=== PATIENT | female | born 1970 | race African-American/Black ===

== ENCOUNTER 2016-10-05 08:54 | Emergency (ER) ==
[2016-10-05 09:01] VITALS: BP 129/78; TEMP 98
[2016-10-05 10:08] LABS: EOSINOPHILS # (AUTO) 0.1 K/ul (0.0-0.7); EOSINOPHILS % (AUTO) 2.2 % (0.0-7.0); IMMATURE GRANULOCYTE % (AUTO) 0.2 % (0.0-5.0); LYMPHOCYTES # (AUTO) 1.4 K/uL (0.60-3.4); MEAN CORPUSCULAR HEMOGLOBIN 22.7 pg (27.0-31.0); MEAN CORPUSCULAR VOLUME 75.6 fl (81.0-99.0); MONOCYTES # (AUTO) 0.5 K/uL (0.4-2.0); MONOCYTES % (AUTO) 12.5 (0-10); NEUTROPHILS # (AUTO) 2.1 K/ul (2.0-6.9); NEUTROPHILS % (AUTO) 50.1; PLATELET COUNT 352 10^3/uL (140-440); RED BLOOD COUNT 3.97 10^6/ul (4.20-5.40); WHITE BLOOD COUNT 4.09 K/ul (4.6-10.2)
--- NOTE | 2016-10-05 10:23 | CT ---
EXAM: CT head without contrast. HISTORY: Dizziness. COMPARISON: 08/07/2015. TECHNIQUE: Multiple axial images of the brain were obtained from the skull base through the vertex without intravenous contrast. FINDINGS: There is no intracranial hemorrhage or extraaxial collection. The conteh-white differentia tion is maintained without evidence for acute large vascular territory infarction. The cortical sul ci and basal cisterns are well visualized. There is no hydrocephalus, mass effect, or midline shift . The paranasal sinuses and mastoid air cells are clear. The calvarium is intact. Since the prior study, there has been no significant interval change. IMPRESSION: No acute intracranial abnormality.
[2016-10-05 10:43] LABS: ALANINE AMINOTRANSFERASE 12 U/L (12-78); ALBUMIN 3.8 g/dL (3.4-5.0); ALBUMIN/GLOBULIN RATIO 0.97; ALKALINE PHOSPHATASE 67 U/L (42-98); ANION GAP 11.1; ASPARTATE AMINO TRANSFERASE 16 U/L (15-37); BILIRUBIN,TOTAL 0.47 mg/dL (0.00-1.20); BLOOD UREA NITROGEN 10 mg/dL (7-18); BUN/CREATININE RATIO 9.52; CALCIUM 9.2 mg/dL (8.2-10.2); CARBON DIOXIDE 23 mmol/L (21-32); CHLORIDE 110 mmol/L (98-107); CREATINE KINASE 172 U/L; CREATININE 1.05 mg/dL (0.60-1.30); GLUCOSE 85 mg/dL (70-110); POTASSIUM 4.1 mmol/L (3.5-5.10); SODIUM 140 mmol/L (136-145); TOTAL PROTEIN 7.7 g/dL (6.4-8.2)
[2016-10-05 11:21] LABS: CREATINE KINASE MB 0.7 ng/ml (0.0-3.6)
--- NOTE | 2016-10-05 11:36 | ED.PDOC ---
General ED Provider: Dr. MANN NARANJO Chief Complaint: Dizziness Stated Complaint: dizziness Time Seen by Physician: 09:00 Mode of Arrival: Walk-In Information Source: Patient Exam Limitations: No limitations Nursing and Triage Documentation Reviewed and Agree: Yes Neurological Complaint Exam - Weakness Complaint/Exam Onset: Gradual Duration: weeks history of anemia chronic weakness Symptoms Are: Still present Timing: Constant Episodes Lasting: Weeks Initial Severity: Mild Current Severity: Mild Character: Reports: Lightheaded, Weak Aggravating: Reports: None Associated Signs and Symptoms: Denies: Nausea, Vomiting, Diaphoresis, Tinnitus, Chest pain, Short of air, Palpitations, Unsteady gait, GI blood loss, Visual changes, Decreased oral intake, Change in medication, Change in diet, OTC meds, Loss of balance Related History: Similar episode Cardiac Risk Factors: Reports: None (CVA 1996) CVA Risk Factors: Reports: None Related Surgical History: Reports: None JVD Present: No Carotid Bruit Present: No Glascow Coma Scale (see protocol): 15 Nystagmus Present: No Gag Reflex Present: Yes Meningeal Signs Positive: No Focal Weakness: Present: None Focal Sensory Loss: Present: None Gait: Normal Romberg Test Positive: No Babinski Sign: Negative Right, Negative Left Differential Diagnoses: GI Bleed (COLON CA , IRON DIFF , ) Quality Indicators for Cardiac Chest Pain: EKG in 10min. Quality Indicators for AMI: EKG in 10min. Quality Indicator For Non-Traumatic Chest Pain/Syncope: EKG Performed Review of Systems - Review Of Systems Constitutional: Reports: Weakness Eyes: Reports: No symptoms Ears, Nose, Mouth, Throat: Reports: No symptoms Respiratory: Reports: No symptoms Cardiac: Reports: No symptoms GI: Reports: No symptoms : Reports: No symptoms Musculoskeletal: Reports: No symptoms Skin: Reports: No symptoms Neurological: Reports: No symptoms Endocrine: Reports: No symptoms Hematologic/Lymphatic: Reports: No symptoms All Other Systems: Reviewed and Negative Past Medical History - Past Medical History Previously Healthy: Yes Endocrine: Reports: None Cardiovascular: Reports: None Respiratory: Reports: None Hematological: Reports: Anemia Gastrointestinal: Reports: None Genitourinary: Reports: None Neuro/Psych: Reports: CVA Musculoskeletal: Reports: None Cancer: Reports: None Last Menstrual Period: yesterday - Surgical History General Surgical History: Reports: Unknown - Family History Family History: Reports: Unknown - Social History Smoking Status: Never smoker Hx Substance Use: No Alcohol Screening: None Physical Exam - Physical Exam Appearance: Well-appearing, No pain distress, Well-nourished Eyes: NOLAN, EOMI, Conjunctiva clear ENT: Ears normal, Nose normal, Oropharynx normal Respiratory: Airway patent, Breath sounds clear, Breath sounds equal, Respirations nonlabored Cardiovascular: RRR, Pulses normal, No rub, No murmur GI/: Soft, Nontender, No masses, Bowel sounds normal, No Organomegaly Musculoskeletal: Normal strength, ROM intact, No edema, No calf tenderness Skin: Warm, Dry, Normal color Neurological: Sensation intact, Motor intact, Reflexes intact, Cranial nerves intact, Alert, Oriented Psychiatric: Affect appropriate, Mood appropriate Critical Care Note - Critical Care Note Total Time (mins): 0 Course - Course Hematology/Chemistry: 10/05/16 10:07 10/05/16 10:07 Orders, Labs, Meds: Lab Review 10/05/16 10:07 WBC 4.09 L RBC 3.97 L Hgb 9.0 L Hct 30.0 L MCV 75.6 L MCH 22.7 L MCHC 30.0 L RDW Coeff of Lauren 18.9 H Plt Count 352 Immature Gran % (Auto) 0.2 Neut % (Auto) 50.1 Lymph % (Auto) 34.0 Cowley % (Auto) 12.5 H Eos % (Auto) 2.2 Baso % (Auto) 1.0 Immature Gran # (Auto) 0.0 Neut # 2.1 Lymph # 1.4 Cowley # 0.5 Eos # 0.1 Baso # 0.0 Sodium 140 Potassium 4.1 Chloride 110 H Carbon Dioxide 23 Anion Gap 11.1 BUN 10 Creatinine 1.05 Estimated GFR (MDRD) 68.00 BUN/Creatinine Ratio 9.52 Glucose 85 Calcium 9.2 Total Bilirubin 0.47 AST 16 ALT 12 Alkaline Phosphatase 67 Total Creatine Kinase 172 CK-MB (CK-2) 0.7 CK-MB (CK-2) % 0.73090 Troponin I < 0.0100 Total Protein 7.7 Albumin 3.8 Globulin 3.9 Albumin/Globulin Ratio 0.97 Orders Category Date Time Status EKG-(ED ONLY) Stat CARDIO 10/05/16 09:51 Completed CBC W/ AUTO DIFF Stat LAB 10/05/16 10:07 Completed COMPREHENSIVE METABOLIC PANEL Stat LAB 10/05/16 10:07 Completed CREATINE KINASE Stat LAB 10/05/16 10:07 Completed TROPONIN I Stat LAB 10/05/16 10:[address] HEAD W/O CONTRAST Stat RADS 10/05/16 09:51 Completed Vital Signs: Temp Pulse Resp BP Pulse Ox 10/05/16 08:55 98.0 F 68 20 129/78 98 Departure - Departure Time of Disposition: 11:36 (DISCUSSED WITH PT COLONSCOPY) Disposition: HOME SELF-CARE Discharge Problem: Dizziness Anemia Qualifiers: Anemia type: unspecified type Qualifier Code: (D64.9) Anemia, unspecified Instructions: Anemia (ED) Condition: Good Pt referred to PMD for follow-up: No Allergies/Adverse Reactions: Allergies codeine Adverse Reaction (Verified 10/05/16 09:01) Hives Home Medications: Ambulatory Orders 1 [No Reported Medications] 10/05/16
[2016-10-05 12:14] LABS: FERRITIN 10.73 ng/mL (4.63-204.00)
== END 2016-10-05 11:50 | disposition home or self-care (01) ==
LOC: ED 08:54
DX: R42 Dizziness and giddiness (principal); D64.9 Anemia, unspecified; R00.1 Bradycardia, unspecified; Z86.73 Personal history of transient ischemic attack (TIA), and cerebral infarction without residual deficits
CPT/HCPCS: 36415; 80053; 82550; 82553; 82728; 83540; 83550; 84484; 85025; 93005; 93010; 99283

== ENCOUNTER 2017-04-08 00:24 | Emergency (ER) ==
[2017-04-08 00:33] VITALS: BP 135/87; TEMP 99.4
--- NOTE | 2017-04-08 00:47 | ED.PDOC ---
General ED Provider: Dr. LUH MEAD-ER Chief Complaint: Shortness of Air Stated Complaint: i have a cough--im coughing up green sputum--marcos had bronchitis before and this is how it feels--denies any fever or hemoptysis Time Seen by Physician: 00:30 Mode of Arrival: Walk-In Information Source: Patient Exam Limitations: No limitations Nursing and Triage Documentation Reviewed and Agree: Yes Respiratory Complaint Exam - Respiratory Complaint/Exam Onset/Duration: 2 days Symptoms Are: Still present Timing: Constant Initial Severity: Severe Current Severity: Moderate Location: Chest Character: Reports: Productive cough Aggravating: Reports: URI Alleviating: Reports: None, Spontaneous resolution Associated Signs and Symptoms: Denies: Rapid breathing, Dyspnea, Fever, Chills, Chest pain, Pleuritic chest pain, Wheezing, Hemoptysis, Dizziness, Calf pain, Calf swelling, Edema, URI, Nasal congestion, Hoarseness, Sinus discomfort, Vomiting, Sore throat, Weight loss, Decreased oral intake, Increased thirst, Increased appetite, Increased urination History of Healthcare-Acquired Pneumonia: No Status Asthmaticus Risk Factors: Reports: None Home Oxygen Use: No Recent Stress Test: No Recent Echo/LV Function: No Current Antibiotic Use: No Current Asthma Medication Use: No Respiratory Distress: None Inadequate Respiratory Effort: No Dysphagia Present: No Stridor Present: No JVD Present: No Accessory Muscle Use: No Retractions: Not Present Diminished Breath Sounds: No Sinus Tenderness: None Grunting Respirations: No Kussmaul Respirations: No Differential Diagnoses: Bronchitis Review of Systems - Review Of Systems Constitutional: Reports: No symptoms Eyes: Reports: No symptoms Ears, Nose, Mouth, Throat: Reports: No symptoms Respiratory: Reports: Cough Cardiac: Reports: No symptoms GI: Reports: No symptoms : Reports: No symptoms Musculoskeletal: Reports: No symptoms Skin: Reports: No symptoms Neurological: Reports: No symptoms Endocrine: Reports: No symptoms Hematologic/Lymphatic: Reports: No symptoms All Other Systems: Reviewed and Negative Past Medical History - Past Medical History Previously Healthy: Yes Endocrine: Reports: None Cardiovascular: Reports: None Respiratory: Reports: None Hematological: Reports: Anemia Gastrointestinal: Reports: None Genitourinary: Reports: None Neuro/Psych: Reports: CVA Musculoskeletal: Reports: None Cancer: Reports: None Last Menstrual Period: 03/21/17 - Surgical History General Surgical History: Reports: Unknown - Family History Family History: Reports: Unknown - Social History Smoking Status: Never smoker Hx Substance Use: No Alcohol Screening: None - Immunizations Tetanus Shot up to Date: No (unsure) Physical Exam - Physical Exam Appearance: Well-appearing, No pain distress, Well-nourished Eyes: NOLAN, EOMI, Conjunctiva clear ENT: Ears normal, Nose normal, Oropharynx normal Neck: Supple Respiratory: Airway patent, Breath sounds clear, Breath sounds equal, Respirations nonlabored Cardiovascular: RRR GI/: Soft Musculoskeletal: Normal strength, ROM intact, No edema, No calf tenderness Skin: Warm, Dry, Normal color Neurological: Sensation intact, Motor intact, Reflexes intact, Cranial nerves intact, Alert, Oriented Psychiatric: Affect appropriate Critical Care Note - Critical Care Note Total Time (mins): 0 Course - Course Vital Signs: Temp Pulse Resp BP Pulse Ox 04/08/17 00:26 99.4 F 66 20 135/87 98 Departure - Departure Time of Disposition: 00:49 Disposition: HOME SELF-CARE Discharge Problem: Bronchitis Instructions: Acute Bronchitis (ED) Condition: Good Pt referred to PMD for follow-up: Yes Additional Instructions: michelle borrego dose pack--use mucinex 600mg bid --see pmd if not better in 48hrs Allergies/Adverse Reactions: Allergies codeine Adverse Reaction (Verified 04/08/17 00:25) Hives Home Medications: Ambulatory Orders 1 [No Reported Medications] 10/05/16 Disposition Discussed With: Patient
== END 2017-04-08 00:55 | disposition home or self-care (01) ==
LOC: ED 00:24
DX: J20.9 Acute bronchitis, unspecified (principal)
CPT/HCPCS: 99282

== ENCOUNTER 2017-08-02 16:31 | Outpatient (CLI) | END 2017-08-02 16:32 | disposition home or self-care (01) | LOC: LAB 16:31 | PROVIDERS: ATTEND General Practice | DX: N92.0 Excessive and frequent menstruation with regular cycle (principal); Z79.899 Other long term (current) drug therapy | CPT/HCPCS: 36415; 80053; 81001; 85008; 85025 ==

== ENCOUNTER 2019-09-09 13:24 | Observation (INO) ==
[2019-09-09] MEDS ORDERED: ASPIRIN CHEWABLE PO STA (13:43)
--- NOTE | 2019-09-09 13:47 | ED.PDOC ---
General ED Provider: Dr. AYANNA MAYORGA MD Chief Complaint: Chest Pain Stated Complaint: mild to mod off and on anterior chest pain tight since 7am with rad to back, no injury Time Seen by Physician: 13:45 Mode of Arrival: Walk-In Information Source: Patient Nursing and Triage Documentation Reviewed and Agree: Yes Does patient meet sepsis criteria?: No System Inflammatory Response Syndrome: Not Applicable Sepsis Protocol: For patient's 13 years and over: Temp is 96.8 and below OR 101 and greater Pulse >90 BPM Resp >20/minute Acutely Altered Mental Status Are patient's symptoms suggestive of a new infection, such as: -Pneumonia -Skin, Soft Tissue -Endocarditis -UTI -Bone, Joint Infection -Implantable Device -Acute Abdominal Infection -Wound Infection -Meningitis -Blood Stream Catheter Infection -Unknown Cardiovascular Complaint Exam Chest Pain Complaint/Exam Onset: Sudden Duration: today Symptoms Are: Resolved Timing: Intermittent Initial Severity: Moderate Current Severity: None Location: Reports Midsternal Pain Radiates: Reports Back Review of Systems Review Of Systems Constitutional: Denies Fever Eyes: Denies Vision change Ears, Nose, Mouth, Throat: Denies Throat pain Respiratory: Denies Short of air Cardiac: Reports Chest pain GI: Denies Abdominal pain Musculoskeletal: Denies Neck pain Skin: Denies Rash Neurological: Denies Cognitive dysfunction All Other Systems: Other [facility] Medical History Anemia Menorrhagia Family History (Updated 09/09/19 @ 16:27 by ALONZO HCAIDEZ RN) Mother Diabetes Hypertension Hypercholesteremia FATHER No problems noted. SISTER Diabetes Hypertension BROTHER No problems noted. BROTHER Diabetes Social History Smoking and tobacco status: Never smoker Passive smoking exposure: No Second hand smoke exposure: No Alcohol intake: never Substance use type: does not use Emily/gnosticist: NONE Special emily needs: No Agree to transfusion: Yes Adopted: No Caregiver/support person: Yes Foster care: No Household members: children Housing: apartment Marital status: S SINGLE Daycare: no daycare Number of children: 4 Number of grandchildren: 13 Highest education level completed: high school graduate Financial difficulty paying for basics: not very hard service: No Current occupational status: employed 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 [employer] Current occupational exposures/hazards: No Pets and animals: No Leisure activites: other History of recent travel: No Sexually active: No Do you think of yourself as: straight/heterosexual Current gender identity: female Seatbelt use: always Helmet use: No Drives intoxicated or rides with intoxicated clamp truck driver: No Water heater temperature set < 120 degrees: Yes Working smoke detector in home: Yes Fire extinguisher in home: Yes Carbon monoxide detector in home: Yes Firearms in home: No Female Reproductive History Menstrual Hx Hysterectomy: No Hx Tubal Ligation: Yes (2000) Physical Exam Physical Exam Appearance: Reports Well-appearing Ill-appearing: None Pain Distress: None Eyes: Reports Conjunctiva clear Neck: Supple Respiratory: Reports Airway patent, Breath sounds clear and Breath sounds equal Cardiovascular: Reports RRR GI/: Reports Soft and Nontender (pt refused stool for hemoccult, as they had been negative in the past, hx hgb 5.7 and transfusion in Aug of this year) Musculoskeletal: Reports ROM intact Skin: Reports Warm and Dry Neurological: Reports Sensation intact Psychiatric: Reports Affect appropriate Interpretation Radiology Interpretation Radiology Interpretation By: Radiologist Radiology Results: No acute changes Exam Interpreted: CXR EKG Interpretation Time of EKG #1: 14:54 Rate: Joesph Rhythm: Sinus Interpretation: no stemi Re-Evaluation Re-Evaluation Time of Re-Evaluation: 14:55 Status: Improved Vital Signs Stable: Yes Appearance: NAD Lungs: Clear Skin: Warm and Dry Neuro: Alert and Oriented X3 CV: RRR Additional Comments: admit for anemia and chest pain d/w Dr Emanuel Critical Care Note Critical Care Note Total Time (mins): 0 Course Course Hematology/Chemistry: 09/09/19 13:53 09/09/19 13:53 Orders, Labs, Meds: Lab Review 09/09/19 09/09/19 09/09/19 13:53 13:53 13:53 WBC 6.70 RBC 3.92 L Hgb 7.3 L Hct 26.2 L MCV 66.8 L MCH 18.6 L MCHC 27.9 L RDW Coeff of Lauren 29.0 H Plt Count 133 L Neutrophils % (Manual) 65.0 Band Neutrophils % 3.0 Lymphocytes % (Manual) 18.0 Monocytes % (Manual) 9.0 Metamyelocytes % 4.0 H Nucleated RBCs 1.0 Hypochromasia 2+ Anisocytosis 2+ Microcytosis 1+ PT INR Sodium 138.4 Potassium 3.85 Chloride 105.6 Carbon Dioxide 25.3 Anion Gap 11.35 BUN 13.2 Creatinine 0.92 Estimated GFR (MDRD) 79.00 BUN/Creatinine Ratio 14.34 Glucose 95.2 Calcium 8.53 Total Bilirubin 2.09 H AST 77.5 H ALT 12.5 Alkaline Phosphatase 60.7 Troponin I 0.017 Total Protein 7.85 Albumin 4.20 Globulin 3.65 Albumin/Globulin Ratio 1.15 Lipase 62.3 Serum , Qual Negative 09/09/19 13:53 WBC RBC Hgb Hct MCV MCH MCHC RDW Coeff of Lauren Plt Count Neutrophils % (Manual) Band Neutrophils % Lymphocytes % (Manual) Monocytes % (Manual) Metamyelocytes % Nucleated RBCs Hypochromasia Anisocytosis Microcytosis PT 10.0 INR 1.02 Sodium Potassium Chloride Carbon Dioxide Anion Gap BUN Creatinine Estimated GFR (MDRD) BUN/Creatinine Ratio Glucose Calcium Total Bilirubin AST ALT Alkaline Phosphatase Troponin I Total Protein Albumin Globulin Albumin/Globulin Ratio Lipase Serum , Qual Orders Category Date Time Status EKG-(ED ONLY) Stat CARDIO 09/09/19 13:43 Completed CBC W/ AUTO DIFF Stat LAB 09/09/19 13:53 Completed COMPREHENSIVE METABOLIC PANEL Stat LAB 09/09/19 13:53 Completed LIPASE Stat LAB 09/09/19 13:53 Completed MANUAL DIFFERENTIAL Stat LAB 09/09/19 13:53 Completed OCCULT BLOOD, STOOL Stat LAB 09/09/19 14:15 Uncollected PT WITH INR Stat LAB 09/09/19 13:53 Completed SERUM Stat LAB 09/09/19 13:53 Completed TROPONIN I Stat LAB 09/09/19 13:53 Completed Aspirin [Aspirin Chewable] MEDS 09/09/19 13:43 Discontinued 324 mg PO ONCE STA CHEST, 1V AP ONLY Stat RADS 09/09/19 13:43 Completed Medications Generic Name Dose Route Start Last Admin Trade Name Freq PRN Reason Stop Dose Admin Acetaminophen 650 mg 09/09/19 14:57 Tylenol PO Q4H PRN Mild Pain Sodium Chloride 1,000 mls @ 75 mls/hr 09/09/19 15:00 09/09/19 15:36 Sodium Chloride IV 75 mls/hr .[id number] MARIO Administration Omeprazole 40 mg 09/09/19 15:00 09/09/19 15:35 Prilosec PO 40 mg QDAC MARIO Administration Discontinued Medications Generic Name Dose Route Start Last Admin Trade Name Nirali PRN Reason Stop Dose Admin Aspirin 324 mg 09/09/19 13:43 09/09/19 13:54 Aspirin Chewable PO 09/09/19 13:44 324 mg ONCE STA Administration Vital Signs: Temp Pulse Resp BP Pulse Ox 09/09/19 13:25 98.9 F 75 18 130/78 98 HARRISON Risk Score HARRISON Risk Score: Risk Score Odds of by 30D 0 0.1 (0.1-0.2) 1 0.3 (0.2-0.3) 2 0.4 (0.3-0.5) 3 0.7 (0.6-0.9) 4 1.2 (1.0-1.5) 5 2.2 (1.9-2.6) 6 3.0 (2.5-3.6) 7 4.8 (3.8-6.1) Discharge Plan Discharge Patient Disposition: PLACED OBSERVATION Discharge Problem: Chest pain Qualifiers: Chest pain type: precordial pain Qualified Code(s): R07.2 - Precordial pain Anemia Qualifiers: Anemia type: unspecified type Qualified Code(s): D64.9 - Anemia, unspecified ED Provider: AYANNA MAYORGA Condition: Stable Discharge Date/Time: 09/09/19 15:12
[2019-09-09 13:57] LABS: HEMATOCRIT 26.2 % (37.0-47.0)
--- NOTE | 2019-09-09 14:42 | DI ---
EXAM: Single view of the chest. History: Chest pain. Comparison: Chest CT 07/04/2016 Findings: Heart size is borderline enlarged. No focal consolidation. No appreciable pleural fluid and no pneumothorax. No acute osseous abnormalities. Impression: Borderline cardiomegaly without acute disease in the chest
[2019-09-09] MEDS ORDERED: TYLENOL PO PRN (14:57)
[2019-09-09] MEDS ORDERED: SODIUM CHLORIDE 1,000 ML IV SCH (15:00)
[2019-09-09] MEDS: PRILOSEC PO SCH (15:35)
[2019-09-09 15:56] VITALS: BMI 27.4
--- NOTE | 2019-09-09 15:56 | PCM ---
Chief Complaint Chief Complaint: 49 yo AAF presented to ED today 09/09/19 with c/o substernal chest pain/epigastric chest pain. History of Present Illness History of Present Illness: 49 yo AAF presented to ED today 09/09/19 at [address] Manuel. Patient reported chest pain mild to moderate off and on anterior chest pain/tightness since 7a m with radiation into the back. No known injury, no trauma, no falls. She arrived via ambulation, provided own in formation. Vitals 98.9, pulse 75, rr 18, bp 130/78 and pulse ox 98. Pain noted to be sudden onset, starting today, now intermittently present moderate severity, midsternal to back pain. No fevver, no vision changes, no throat pain, no SOA, no COE, no abd pain, no mental status changes reported to ED. 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 Manuel. Never smoker. No ETOH, no drug use. Phys exam in ED well-appearing, lungs clear, RRR cv exam. Refused stool for hemoccult. Recent hgb 5.7 transfusion 2 units within past 2 weeks through IT INFRASTRUCTURE MANAGER Marko request at [facility]. CXR completed and negative. EKG completed and read as Bradycardia else no acute process in ED (copy of EKG not available to me at this time). Labs in ED showed CBC WBC 6.70, hgb 7.3, hct 26.2, plt 133. CMP sodium 138.4, K+ 3.85, Cl 105.6, bun 13.2, cr 0.92, glycose 95.2, calcium 8.53, AST 77.5. Bili 2.09. Troponin I negative. Lipase negative at 62.3. PT 10, INR 1.02 . Reviewed report "Borderline cardiomegaly without acute disease in the chest." Patient was given 324 ASA in ED, no change. She has no history of DM, no obvious/known CAD. HARRISON score of 1 point suggests she has a 5% risk at 14 days of: all-cause mortality, new or recurrent WI, or severe recurrent ischemia requiring urgent revascularization. Odds of 0.3. Meds listed as augmentin, b12 (for low b12), flonase, naproxen. I will stop naproxen with concern for bleed and low platelet. Less cardiac SE from naproxen than other nsaids. Will cover her with morphine during hospital stay. Note reviewed from 09/07/19 TOÑITO Zhu 4 day f/u on PRBC infusion last week. Reported improved feelings. No C/o noted. LMP 09/04/19. Known iron deficiency, known anemia, b12 low, iron suggests low, s/p PRBC 2 units. Provider/patietn have discussed PO iron. She has not done well with FESo4 in past. Considered other source of iron. She has had blood tx hsitorically, up to 4 units to get it above 7. Sinus drainage at last OV on augmentin for that process. Rx for flonase, not taking yet. Note from 09/03/19 also reviewed. Cough, Tachycardia, febrile temp 100.9. Low iron, sx started 09/01/19. LMP reported as 09/03- (I talked with her personally and her LMP was 08/21-09/04). Patient d/w IT INFRASTRUCTURE MANAGER Jerman that she had 1 week tachy, dizzy, ODONNELL generalized, cough non prod. Hx of severe anemia requiring tx. Last tx 1 year ago. No sinus tenderness, hot/chills, no cheset pain, no flu shot this season. Iron pills make her sick at stomach, was taking flinstones vitamins, but not helping. Wants to see web marketing analyst due to heavy cycles. Heavy clots, 2 week cycles. Longe term problem. She wants to d/w OIL PUMPER. Mother recently w/ pneumonia at 70 yr old according to note. Hgb was 4.9 at that visit. Set up for 2 units PRBC. Transfused. Patient seen room 122: Noted stroke 1986 after Contraception. She had left facial weakness, resolved, no issues. 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 The patient noted that she had chest pain and lower back pain and this presented to epigastric region and stayed a the sternum, felt heart was fluttering. She laid there and it went away and then it came back again. No N/V. Diarrhea this am. Likely antibiotic related diarrhea. Non bloody diarrhea. She has appt with conduit bender at 10 am tomorrow at . She wants treadmill stress, declines chemical stress. She and I discussed iron and b12. We will get her injection of b12 as outpatient. She noted her SOA, COE, her cough and symptoms improved post transfusion. She feels 7 is doing very well for her. not currently sexually active. After further discussion her LMP was 08/21- 09/04. No concern. Discussed to discuss with senior net programmer hysterectomy vs ablation. No C/O now, no CHest pain. Vital Signs Temp 98.9 F 09/09/19 15:56 Pulse 75 09/09/19 15:56 Resp 18 09/09/19 15:56 BP 130/78 09/09/19 15:56 Pulse Ox 98 09/09/19 15:56 Intake & Output 09/08/19 09/09/19 09/09/19 23:59 11:59 23:59 Weight 165 lb Other: Voiding Method Toilet Height 5 ft 5 in Body Mass Index (BMI) 27.4 Constitutional: Appearance-No acute distress, Consistent with stated age. Orientation- Oriented x 3, alertGait-Normal pace, normal arm movement. Build and Nutrition-[overweight] General- Patient is pleasant and cooperative with the interview and exam. Integumentary: General-No rashes, ulcers or lesions. Palpation- Normal skin moisture/turgor. Skin is warm to touch, appropriate. Capillary refill is normal bilateral Upper and lower extremity. Head/Neck: Head- normocephalic and atraumatic. Neck- without visible/palpable lumps or pulsations. Palpation- No bony tenderness about head/neck along frontal, occipital, temporal, parietal, mastoid, jawline, zygoma, orbit or any other location. NO temporal artery tenderness. No TMJ tenderness. Neck Supple. Thyroid-No thyromegaly, no nodules Eye: Bilaterally PERRLA, EOMI. No discharge. Upper and lower eyelids are normal. Sclera/conjunctiva normal without discharge. Cornea is normal and clear. Lens is normal. Eyeball appears normal. No ciliary flushing, no conjunctival injection. ENMT: Pinna- normal without tenderness or erythema. External auditory canal Left- normal without erythema or discharge, no excessive cerumen. External auditory canal Right-normal without erythema or discharge, no excessive cerumen. TM left- unable to visualize due to Cerumen impaction. TM Right- Leung/pearly, normal light reflex and anatomy Hearing Assessment-normal to conversational speech. Nose and sinus- No sinus tenderness along frontal/maxillary region. E xternal appearance normal and midline. Nares- bilateral quiet airflow, no discharge. Nasal mucosa- No bleeding noted and no ulcerations observed. [place], moist. Turbinates non boggy. Lips- normal color, moist without cracks/lesions Oral Cavity/Palate- hard/soft palate intact without lesions, oral mucosa pink and moist. Dentition assessed [and poor, missing teeth] and discussed appropriate oral care. Tongue normal midline. Oropharynx- no pharyngeal erythema, Uvula midline. No post nasal drip. No exudate. Salivary glands- Non tender to palpation CHEST/LUNG: Inspection- symmetric chest wall no pectus deformity. Normal effort, no distress, no use of accessory muscles. Palpation- nontender sternum, ribline. No abnormal pulsations. Auscultation- Breath sounds normal throughout all lung rivero. Normal tracheal sounds, Normal bronchial sounds overlying sternum, Bronchovessicular sounds normal between scapulae posteriorly, Normal vessicular breath sounds heard throughout periphery. Lungs are clear today. Adventitious sounds- No wheezes, rales, rhonchi. CARDIOVASCULAR: Carotid artery- normal, no bruits or abnormal pulsations. Jugular vein- no pulsations. Palpation/Percussion- Normal PMI, no palpable thrill Auscultation- Regular rate and rhythm. No murmur noted in sitting, supine positions. Extremities- no digital clubbing, cyanosis, edema, increased warmth. ABDOMEN: Inspection- normal and no visible pulsations. Normal contour. Auscultation- Bowel sounds normal, no abdominal bruits. Palpation/Percussion- soft, non-tender, no rebound tenderness, no rigidity (guarding), no jar tenderness, no masses. Liver-no hepatomegaly, Spleen no splenomegaly, Hernias- none. Rectal not examined. Peripheral Vascular: Upper extremity Left- Normal temperature with pink nailbeds and no ulcerations. Upper extremity Right- Normal temperature with pink nailbeds and no ulcerations. Lower extremity- Normal temperature with pink nailbeds and no ulcerations. DP pulses 2+ bilaterally. Pedal hair intact. Normal capillary refill. Edema- No edema. IV left forearm. Musculoskeletal: Generalized-No generalized swelling or edema of extremities, no digital clubbing or cyanosis, neurovascularly intact all four extremities. Upper extremity- Symmetrical posture. No visible deformity. Normal sensation along medial and lateral upper extremity proximally and distally. NO tenderness overlying shoulder, lateral/medial epicondyle. Sketch Maker 5/5 and strength 5/5 bilateral UE. Elbow palpated, no tenderness overlying olecranon. Normal supination, pronation to active/passive ROM and to resisted rotation. Bicep insertion/tricep insertion appear normal without obvious pathology. Rotator cuff evaluated and intact. Normal wrist ROM bilaterally. Normal hand movement, intrinsic muscles of hands normal. No tenderness to palpation of hands/wrists/elbows. Lower extremity- Hip: Not tender to palpation, no pain, no swelling, edema or erythema of surrounding tissue, normal strength and tone. Normal appearing hip ROM bilaterally without pain. Knee: Knee ROM normal. No tenderness overlying trochanters, no tenderness about patella, quad tendon, patellar tendon. No tenderness at tibial tuberosity. Ankle: normal ROM not tender to palpation along medial/lateral malleolus. Foot: Normal movement of toes, no tenderness bilateral feet/toes. Normal foot type. Spine/Ribs- No deformities, masses or tenderness, no known fractures, normal strength, Normal ROM. Normal stability No tenderness along C/T/L spine. Normal appearing ROM about spine. Neurological: General- Moves all 4 extremities symmetrically. Symmetrical face and body posture except mild left lower lip droop/lag that is chronic. Cranial nerves- individually evaluated II-XII and intact. PERRLA, Normal EOMI, visual/special senses appear intact, Face is symmetrical and normal sensa tion/movement, normal tongue, normal strength/posture of neck musculature. Reflexes- intact with DTR 2+ patellar, Achilles, bicep, brachial, tricep. Ankle clonus normal with 2 beats. Strength- 5/5 bilateral UE and LE. Soft touch- intact bilateral UE and LE. Temperature sensation- intact bilateral UE and LE. Neuropsych: Oriented- Person, place, time. (AAOx3), Mood/affect- normal and congruent. Able to articulate well. Speech-Normal speech, normal rate, normal tone, normal use of language, volume and coherence. Thought content- normal with ability to perform basic computations and apply abstract thought/reason. Associations- intact, no SI/HI, no hallucinations, delusions, obsessions. Judgment/insight- Appropriate. Memory-Recall intact, remote and recent memory intact. Knowledge- Age appropriate fund of knowledge, concentration and attention span normal. Lymphatic: Head/Neck- normal size and non tender to palpation. Axillary- normal size and non tender to palpation. Femoral and Inguinal- normal size and non tender to palpation. Review of Systems Constitutional: Denies fever, chills, weakness, sweats, fatigue and loss of appetite Eyes: Denies blurred vision, double-vision, discharge, itching, pain, redness and photophobia Ears: Denies pain, bleeding, drainage, ringing and hearing loss Nose: Denies bleeding, congestion and discharge Throat: Denies pain, swelling and voice change Mouth: Denies bleeding, pain and swelling Respiratory: Denies cough, shortness of air, wheeze, hemoptysis and pain with breathing Cardiovascular: Reports chest pain; Denies left arm pain, diaphoresis, PND, orthopnea, edema, palpitations and syncope Gastrointestinal: Reports abdominal pain, nausea and diarrhea; Denies vomiting, melena, hematemesis, hematochezia, dysphagia and constipation Genitourinary: Denies dysuria, hematuria, frequency, incontinence, flank pain, vaginal discharge, abnormal bleeding and pelvic pain Last Menstrual Cycle: 08/21-09/04/19 Neurological: Denies headache, dizziness, seizure, numbness, weakness, speech difficulty, problems with walking, tremor and fainting Musculoskeletal: Denies pain and swelling in joints Skin: Denies rash, pruritus, lacerations, wounds and bruising Immunology: Denies hives, itching, frequent infections and difficulty healing Hematology: Reports other (anemia); Denies easy bruising, easy bleeding and swollen glands Endocrine: Denies weight changes, cold intolerance, heat intolerance, excessive thirst, excessive hunger and polyuria Psychiatric: Denies depression, anxiety, sleeplessness, hopelessness, suicidal and hallucinations Habits: Reports other; Denies tobacco use, substance use and alcohol use Allergies Allergies Allergy/AdvReac Type Severity Reaction Status Date / Time codeine AdvReac Hives Verified 09/09/19 13:34 [facility] Medical History Anemia Menorrhagia Stroke (Acute) Surgical History History of tubal ligation Family History Mother Diabetes Hypertension Hypercholesteremia FATHER No problems noted. SISTER Diabetes Hypertension BROTHER No problems noted. BROTHER Diabetes Social History Smoking and tobacco status: Never smoker Passive smoking exposure: No Second hand smoke exposure: No Alcohol intake: never Substance use type: does not use Emily/orthodoxy: NONE Special emily needs: No Agree to transfusion: Yes Adopted: No Caregiver/support person: Yes Foster care: No Household members: children Housing: apartment Marital status: S SINGLE Daycare: no daycare Number of children: 4 Number of grandchildren: 13 Highest education level completed: high school graduate Financial difficulty paying for basics: not very hard service: No Current occupational status: employed 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 [employer] Current occupational exposures/hazards: No Pets and animals: No Leisure activites: other History of recent travel: No Sexually active: No Do you think of yourself as: straight/heterosexual Current gender identity: female Seatbelt use: always Helmet use: No Drives intoxicated or rides with intoxicated stunt driver: No Water heater temperature set < 120 degrees: Yes Working smoke detector in home: Yes Fire extinguisher in home: Yes Carbon monoxide detector in home: Yes Firearms in home: No Medications Medications: Medications Generic Name Dose Route Start Last Admin Trade Name Freq PRN Reason Stop Dose Admin Acetaminophen 650 mg 09/09/19 14:57 Tylenol PO Q4H PRN Mild Pain Sodium Chloride 1,000 mls @ 75 mls/hr 09/09/19 15:00 09/09/19 15:36 Sodium Chloride IV 75 mls/hr .[id number] MARIO Administration Omeprazole 40 mg 09/09/19 15:00 09/09/19 15:35 Prilosec PO 40 mg QDAC MARIO Administration Body Composition Height: 5 ft 5 in Weight: 165 lb Body Mass Index (BMI): 27.4 Vital Signs Temperature: 98.9 F Pulse Rate: 75 Respiratory Rate: 18 Blood Pressure: 130/78 O2 Sat by Pulse Oximetry: 98 Physical Examination Appearance: Reports Well-appearing; Denies Ill-appearing, No pain distress, Well-nourished, Obese and Thin Ill-appearing: None Pain Distress: None (chest pain is resolved now. ) Eyes: Reports NOALN, EOMI and Conjunctiva clear; Denies Conjunctiva inflammed and Conjunctiva pale ENT: Reports Nose normal, Oropharynx normal and TMs Occluded (cerumen impacted left, prominent right. ); Denies Epistaxis, Erythema, Exudate and Dry mucosa Neck: Supple Respiratory: Reports Airway patent, Breath sounds clear, Breath sounds equal and Respirations nonlabored; Denies Breath sounds diminished, Crackles, Rhonchi, Wheezes and Retractions Cardiovascular: Reports RRR, Pulses normal, No rub, No murmur and Bradycardia; Denies Irregular rhythm, Tachycardia, Abnormal pulses and Murmur GI/: Reports Soft, Nontender, No masses, Bowel sounds normal and No Organomegaly; Denies Tender, Mass, Bowel sounds hypoactive, Bowel sounds hyperactive, Hepatomegaly and Splenomegaly Musculoskeletal: Reports Normal strength, ROM intact, No edema and No calf tenderness; Denies Limited ROM, Limited strength, Edema and Calf tenderness Skin: Reports Warm, Dry and Normal color; Denies Pale, Diaphoretic and Cyanotic Neurological: Reports Sensation intact, Motor intact, Reflexes intact, Cranial nerves intact, Alert and Oriented Psychiatric: Reports Affect appropriate and Mood appropriate; Denies Anxious and Depressed Lab/Tests/Diagnostic Imaging Lab/Tests/Diagnostic Imaging: Lab Review 09/09/19 09/09/19 09/09/19 13:53 13:53 13:53 WBC 6.70 RBC 3.92 L Hgb 7.3 L Hct 26.2 L MCV 66.8 L MCH 18.6 L MCHC 27.9 L RDW Coeff of Lauren 29.0 H Plt Count 133 L Neutrophils % (Manual) 65.0 Band Neutrophils % 3.0 Lymphocytes % (Manual) 18.0 Monocytes % (Manual) 9.0 Metamyelocytes % 4.0 H Nucleated RBCs 1.0 Hypochromasia 2+ Anisocytosis 2+ Microcytosis 1+ PT INR Sodium 138.4 Potassium 3.85 Chloride 105.6 Carbon Dioxide 25.3 Anion Gap 11.35 BUN 13.2 Creatinine 0.92 Estimated GFR (MDRD) 79.00 BUN/Creatinine Ratio 14.34 Glucose 95.2 Calcium 8.53 Total Bilirubin 2.09 H AST 77.5 H ALT 12.5 Alkaline Phosphatase 60.7 Troponin I 0.017 Total Protein 7.85 Albumin 4.20 Globulin 3.65 Albumin/Globulin Ratio 1.15 Lipase 62.3 Serum , Qual Negative 09/09/19 13:53 WBC RBC Hgb Hct MCV MCH MCHC RDW Coeff of Lauren Plt Count Neutrophils % (Manual) Band Neutrophils % Lymphocytes % (Manual) Monocytes % (Manual) Metamyelocytes % Nucleated RBCs Hypochromasia Anisocytosis Microcytosis PT 10.0 INR 1.02 Sodium Potassium Chloride Carbon Dioxide Anion Gap BUN Creatinine Estimated GFR (MDRD) BUN/Creatinine Ratio Glucose Calcium Total Bilirubin AST ALT Alkaline Phosphatase Troponin I Total Protein Albumin Globulin Albumin/Globulin Ratio Lipase Serum , Qual Orders Category Date Time Status ADMIT OBSERVATION [PLACE PATIENT OBSERVATION] .TO ADMISSION 09/09/19 15:02 Active MEDSURG (MONITORED BED) EKG-(ED ONLY) Stat CARDIO 09/09/19 13:43 Completed INTAKE & OUTPUT Q8HR CARE 09/09/19 14:58 Active TELEMETRY MONITORING TELE CARE 09/09/19 15:03 Active VITAL SIGNS Q8HR CARE 09/09/19 14:58 Active CARDIAC DIET DIETARY 09/09/19 Dinner Ordered REGULAR DIET DIETARY 09/09/19 Dinner Ordered CBC W/ AUTO DIFF Stat LAB 09/09/19 13:53 Completed COMPREHENSIVE METABOLIC PANEL Stat LAB 09/09/19 13:53 Completed LIPASE Stat LAB 09/09/19 13:53 Completed MANUAL DIFFERENTIAL Stat LAB 09/09/19 13:53 Completed OCCULT BLOOD, STOOL Stat LAB 09/09/19 14:15 Uncollected PT WITH INR Stat LAB 09/09/19 13:53 Completed SERUM Stat LAB 09/09/19 13:53 Completed TROPONIN I Q8H LAB 09/09/19 21:00 Ordered TROPONIN I Q8H LAB 09/10/19 05:00 Ordered TROPONIN I Stat LAB 09/09/19 13:53 Completed Acetaminophen [Tylenol] MEDS 09/09/19 14:57 Active 650 mg PO Q4H PRN Aspirin [Aspirin Chewable] MEDS 09/09/19 13:43 Discontinued 324 mg PO ONCE STA Omeprazole [Prilosec] MEDS 09/09/19 15:00 Active 40 mg PO QDAC Sodium Chloride 0.9% [Sodium Chloride] 1,000 ml MEDS 09/09/19 15:00 Active IV 75 mls/hr RESUSCITATION STATUS Routine OTHERS 09/09/19 14:57 Ordered CHEST, 1V AP ONLY Stat RADS 09/09/19 13:43 Completed Medications Generic Name Dose Route Start Last Admin Trade Name Freq PRN Reason Stop Dose Admin Acetaminophen 650 mg 09/09/19 14:57 Tylenol PO Q4H PRN Mild Pain Sodium Chloride 1,000 mls @ 75 mls/hr 09/09/19 15:00 09/09/19 15:36 Sodium Chloride IV 75 mls/hr .[id number] MARIO Administration Omeprazole 40 mg 09/09/19 15:00 09/09/19 15:35 Prilosec PO 40 mg QDAC MARIO Administration Discontinued Medications Generic Name Dose Route Start Last Admin Trade Name Freq PRN Reason Stop Dose Admin Aspirin 324 mg 09/09/19 13:43 09/09/19 13:54 Aspirin Chewable PO 09/09/19 13:44 324 mg ONCE STA Administration Assessment (1) Chest pain: Status: Acute Code(s): R07.9 - Chest pain, unspecified SNOMED Code(s): 16752882 Qualifiers: Chest pain type: precordial pain Qualified Code(s): R07.2 - Precordial pain (2) Anemia: Status: Acute Code(s): D64.9 - Anemia, unspecified SNOMED Code(s): 146604420 Qualifiers: Anemia type: unspecified type Qualified Code(s): D64.9 - Anemia, unspecified (3) Vitamin B12 deficiency: Status: Acute Code(s): E53.8 - Deficiency of other specified B group vitamins SNOMED Code(s): 730385777 (4) Iron (Fe) deficiency anemia: Status: Acute Code(s): D50.9 - Iron deficiency anemia, unspecified SNOMED Code(s): 06107500 (5) Excessive cerumen in left ear canal: Status: Acute Code(s): H61.22 - Impacted cerumen, left ear SNOMED Code(s): 983191014 (6) Menorrhagia: Status: None SNOMED Code(s): 229819504 Plan Plan: Chest pain: DDX for chest pain is vast. We discussed typical examination in history findings for chest pain and heart attack today. We discussed that multiple organ systems can be the cause for this complaint. We reviewed possible causes to include cardiac etiologies: ACS, pericarditis, pericardial effusion, respiratory issues to include bronchitis/asthma/COPD/bronchospasm, PE (No SOA, no COE, LOW LIKELIHOOD OF PE/DVT based on Wells score 0 (1.3%)), GI problems to include esophageal spasm/achalasia, Hiatal hernia, GERD, PUD, Liver disease/pancreatic disease, renal disease. Will check labs as listed. We discussed risks and benefits to getting EKG today, we reviewed aspirin and nitroglycerin. HARRISON score of 1. Requested stress. I will get stress/echo in am. She requested treatmill. She is asymptomatic now. She has had history of stroke. DIscussed GI as most likely etiology. - Admit Obs - Tele Overnight - Fluids maintenance: NS 115ml/hr - Am cbc/cmp - Treadmill Stress echo in am - Echocardiogram in am (history of embolic stroke) - Morphine 2mg IV q 4 hours pRN pain - D/C NSAIDS. - Hemoccult ordered. Sinusitis: Continue home dose of augmentin. - Augmentin 875 PO BID x 7 days. Cerumen impaction left: Monitor. Hold debrox while in hospital. DVT Prophy: With history of ?dark stools, no blood thinners for now. Up ad jyoti. If a BM is present please check for hemoccult. - GRISELDA/SCD overnight recommended. - Up ad jyoti, full activity. Anemia: B12/ iron deficient. W/u as outpatient. Transfusion completed within last few weeks. Continue to monitor. Anemia is better than it has been in a while. She is happy with progress. - CBC/CMP in am. Fluids: Maintenance fluids to be set at 115ml/hour overnight (increase from 75). Diet: Regular. NPO after midnight. Disposition: Expected length of stay 24 hours. Moderate complexity 50 minutes spent with patient today. Reviewed ED information with her, reviewed last notes from IT INFRASTRUCTURE MANAGER with her. Reviewed labs, imaging, symptoms. She has appt with senior net programmer tomorrow. Anemia chronic. Now chest pain free. Consider PPI/Carafate as next line. For now she coe snot want this. We discussed options. Will see again in am. Discussed care with nursing as well.
[2019-09-09] MEDS: FLONASE NAS SCH (18:03)
[2019-09-09] MEDS: AUGMENTIN 875-125 MG TAB PO SCH (20:23)
[2019-09-10] MEDS: SODIUM CHLORIDE 1,000 ML IV SCH ×2 (00:29→17:46)
[2019-09-10 05:20] LABS: HEMATOCRIT 24.5 % (37.0-47.0)
[2019-09-10] MEDS: PRILOSEC PO SCH (05:47)
[2019-09-10] MEDS: FLONASE NAS SCH (09:37)
[2019-09-10] MEDS: AUGMENTIN 875-125 MG TAB PO SCH ×2 (09:37→20:23)
--- NOTE | 2019-09-10 10:24 | STRESSECHO ---
Date of Test: 09/10/2019 Ordering Physician: DR. 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 Reason for Exam: CHEST PAIN, ANEMIA Smoking History: NONE Height: 65" Weight: 165 LBS Current Medications: OMEPRAZOLE, ALEVE, FLUTICASONE, VITAMIN B12 Resting EKG: SINUS BRADYCARDIA Target Heart Rate: 145/171 S-T SEGMENT STAGE MPH/GRADE HEART RATE BPM BLOOD PRESSURE MM[facility] RHYTHM +/- ELEVATION DEPRESSION SYMPTOMS AT REST 44 BPM 116/67 [facility] SR X NONE 1 1.7/10% 2 2.5/12% 3 3.4/14% 4 4.2/16% 5 5.0/18% Immediately After 140 BPM 138/50 [facility] SR X SOB, FATIGUE Minutes Post Exercise 2:00 72 BPM 140/40 [facility] SR X NONE Minutes Post Exercise 5:00 46 BPM 110/76 [facility] SR X NONE DURATION OF EXERCISE: 2:09 MAXIMUM HEART RATE REACHED: 140 BPM REASON FOR TERMINATION: SOB, FATIGUE 94% OXYGEN SATURATION WITH EXERCISE ON ROOM AIR METS 4.6 INTERPRETATION: 1. NO EVIDENCE OF ISCHEMIA BY ST-T WAVE 2. EXERCISE TOLERANCE : LOW 3. NO CHEST PAIN OR DISCOMFORT 4. NO ARRHYTHMIA 5. BLOOD PRESSURE RESPONSE: NORMAL NORMAL LEFT VENTRICULAR CONTRACTILITY--RESTING AND POST EXERCISE MTDD
--- NOTE | 2019-09-10 12:23 | PCM.PROG ---
Date Seen by Provider: 09/10/19 Time Seen by Provider: 07:15 Subjective: 49 yo AAF HD #2. Reviewed overnight telemetry, reviewed vitals this am, reviewed patient status. Patient in cardiopulmonary at 7:00 at time for rounding #1. Through night she was alert. She was up ad jyoti. HR ran from 45- 70s with tele showing SB through SR. I reviewed EKG, no heart block. She has apparent chronic bradycardia. This am labs showed WBc stable 7.33, hgb down to 6.7, hct 24.5 and plt 119. CMP showed normal sodium 138.8, mildly low K+ 3.87 and normal BUN 11, Cr 0.92, glucose 95.3. Calcium appeared low at 8.14 but corrected to 8.4 when albumin of 3.66 was considered. The patient had mild elevation of AST, which was not specific. Vitals 05:25 showed temp 99.3, hr 52, rr 16, bp 111/55, o2 99%. She has chronic anemia, suspect b12 deficiency (replacing outpatient), iron deficiency (replacing outpatient), but also dysmenorrhea/heavy periods. She has apt today with [facility] that will likely need to be rescheduled. I feel that another 1 unit of PRBC will help her further. She has improved from 4.9 to ~7. Fluids are running, WBC increased rather than decreased suggesting dilutional effect may not be the cause. With a negative stress test, and another unit of blood, she can likely be discharged today with chronic anemia, Fe def, b12 def, heavy menstrual cycles and need for f/u with [facility] and likely hematology. I noted elevated bili with normal alk phos. I have added direct bilirubin to evaluate which part is elevated. She has had normal pT/INR in hospital. She has been up ad jyoti, no issues overnight, freely able to ambulate. No blood thinners were used. NPO after midnight. Discussed GRISELDA/SCD while in hospital as up ad jyoti, we allowed them to remain off. Mostly asymptomatic but is having some hypotension and bradycardia. Thus, we will transfuse the 1 unit. I will round on patient again once stress test/echo are complete. Suspect d/c home today as the patient is in chronic state and she is maximized from current hospitalization. She has not had any chest pain in am, throughout the day, throughout the entirety of hospital stay. I was called at ~10am and informed that stress test was negative and patient requested food. She was given diet and seen by me as she was unavailable for rounding earlier in the am. She remained asymptomatic. At around 11 am, I was called by lab that they were unable to transfuse patient as the labs were abnormal. Bilirubin was markedly elevated, it appeared that she had sickle cells and abnormal nucleated RBC. Contacted Pathology director of lab and discussed case with her. She has had numerous transfusion in life. She noted some antibodies can lead to delayed transfusion reaction and if they give blood now, it could like to DIC, could like to STEPHANIE/Renal failure. Dr. Ramirez is contacting [facility] personally and has my cell to discuss options for patient. She is clinically stable, vitals stable. I have seen her X2 today and GRISELDA/SCD recommended by me. I reviewed history with Dr. Ramirez, agree that blood is not emergent and that it would be best to not transfuse her at this time. The correct diagnosis, the correct blood is the mnost important point at present. Could she have an unknown underlying coagulopathy. This could have explained the [facility] stroke in 1979'. Worried about delayed hemolytic anemia from transfusion reaction. I have since ordered LDH, haptoglobin and Hgb electrophoresis. HOwever Hgb electrophoresis may be tainted by blood products received within last 2 weeks. Last transfusion was 2018 negative antibodies, negative reaction. She has no known history of sickle cell. She said she would ask her mother. She has not had work up for coagulopathy or the anemia before per her report. The chest pain was the reason for admit and her symptoms have resolved, she had a negative echo and a negative stress test. Her anemia is chronic. She did not have jaundice that I could tell, Bili is up, AST is actually down. Direct bili was 0 suggesting intravascular hemolysis, vs Gilbert syndrome. Stress Echo INTERPRETATION: 1. NO EVIDENCE OF ISCHEMIA BY ST-T WAVE 2. EXERCISE TOLERANCE : LOW 3. NO CHEST PAIN OR DISCOMFORT 4. NO ARRHYTHMIA 5. BLOOD PRESSURE RESPONSE: NORMAL NORMAL LEFT VENTRICULAR CONTRACTILITY--RESTING AND POST EXERCISE REVIEW OF SYMPTOMS: (Positives bolded): No COMPLAINTS TODAY. Denies CP, ODONNELL, SOA, vision changes. General: weight loss, fever, chills, night sweats, fatigue, appetite loss HEENT: blurry vision, eye pain, eye discharge, dry eyes, decreased vision, sore throat tinnitus, bloody nose, hearing loss, sinus pain/pressure, ear pain/pressure. Respiratory: shortness of breath, cough, hemoptysis, wheezing, pleurisy, Cardiovascular: chest pain, PND, palpitation, edema, orthopnea, syncope, swelling of extremities Gastro: Nausea, vomiting, diarrhea, hematemesis, abdominal pain, constipation Genito: hematuria, dysuria, glycosuria, hesitancy, frequency, incontinence Musckelo: Arthralgia, myalgia, muscle weakness, joint swelling, NSAID use Skin: rash, pruritis, sores, nail changes, skin thickening, change in wart/mole, itching, rash, new lesions, pruritus, nail changes Neuro: Migraine, numbness, ataxia, tremor, vertigo, weakness, memory loss, Irritability, dizziness Endocrine: excessive thirst, polyuria, cold intolerance, heat intolerance, goiter Psychiatric: depression, anxiety, anti-depressants, alcohol abuse, drug abuse, insomnia, change in sleep pattern and mood changes Heme/lymph: easy bruising, bleeding gums, blood clots, swollen glands, lymphedema, Allergic/immune: allergic rhinitis, hay fever, asthma, hives Objective: Vital Signs - 24 hr 09/09/19 13:25 09/09/19 15:22 09/09/19 15:56 Temperature 98.9 F 98.3 F 98.9 F Pulse Rate 75 50 L 75 Respiratory Rate 18 18 18 Blood Pressure 130/78 130/78 O2 Sat by Pulse Oximetry 98 100 98 09/09/19 18:00 09/09/19 21:36 09/10/19 02:00 Temperature 98.1 F 98.5 F 99.0 F Pulse Rate 56 L 54 L 50 L Respiratory Rate 16 16 16 Blood Pressure 105/56 L 134/78 133/66 O2 Sat by Pulse Oximetry 100 99 98 09/10/19 05:25 09/10/19 10:00 Temperature 99.3 F 98.6 F Pulse Rate 52 L 46 L Respiratory Rate 16 20 Blood Pressure 111/55 L 134/65 O2 Sat by Pulse Oximetry 99 98 Constitutional: Appearance-No acute distress, Consistent with stated age. Orientation- Oriented x 3, alert Gait-Normal pace, normal arm movement. Build and Nutrition-[overweight] General- Patient is pleasant and cooperative with the interview and exam. Integumentary: General-No rashes, ulcers or lesions. Head/Neck: Head- normocephalic and atraumatic. Neck- without visible/palpable lumps or pulsations. Palpation- No bony tenderness about head/neck along frontal, occipital, temporal, parietal, mastoid, jawline, zygoma, orbit or any other location. NO temporal artery tenderness. No TMJ tenderness. Neck Supple. Thyroid-No thyromegaly, no nodules Eye: Bilaterally PERRLA, EOMI. No discharge. Non jaundice on exam. no conjunctival injection. ENMT: Nasal mucosa- No bleeding noted and no ulcerations observed. [place], moist. Turbinates non boggy. Lips- normal color, moist without cracks/lesions Oral Cavity/Palate- hard/soft palate intact without lesions, oral mucosa pink and moist. CHEST/LUNG: Inspection- symmetric chest wall no pectus deformity. Normal effort, no distress, no use of accessory muscles. Palpation- nontender sternum, ribline. No abnormal pulsations. Auscultation- Breath sounds normal throughout all lung rivero. Normal tracheal sounds, Normal bronchial sounds overlying sternum, Bronchovessicular sounds normal between scapulae posteriorly, Normal vessicular breath sounds heard throughout periphery. Lungs are clear today. Adventitious sounds- No wheezes, rales, rhonchi. CARDIOVASCULAR: Carotid artery- normal, no bruits or abnormal pulsations. Jugular vein- no pulsations. Palpation/Percussion- Normal PMI, no palpable thrill Auscultation- Regular rate and rhythm. No murmur noted in sitting, supine positions. Extremities- no digital clubbing, cyanosis, edema, increased warmth. ABDOMEN: Inspection- normal and no visible pulsations. Normal contour. Auscultation- Bowel sounds normal, no abdominal bruits. Palpation/Percussion- soft, non-tender, no rebound tenderness, no rigidity (guarding), no jar tenderness, no masses. Liver-no hepatomegaly, Spleen no splenomegaly, Hernias- none. Rectal not examined. Peripheral Vascular: Upper extremity Left- Normal temperature with pink nailbeds and no ulcerations. Upper extremity Right- Normal temperature with pink nailbeds and no ulcerations. Lower extremity- Normal temperature with pink nailbeds and no ulcerations. DP pulses 2+ bilaterally. Pedal hair intact. Normal capillary refill. Edema- No edema. Musculoskeletal: Generalized-No generalized swelling or edema of extremities, no digital clubbing or cyanosis, neurovascularly intact all four extremities. Neurological: General- Moves all 4 extremities symmetrically. Symmetrical face and body posture except mild chronic lower lip weakness. Cranial nerves- individually evaluated II-XII and intact. PERRLA, Normal EOMI, visual/special senses appear intact, normal sensation/movement, normal tongue, normal strength/posture of neck musculature. Neuropsych: Oriented- Person, place, time. (AAOx3), Mood/affect- normal and congruent. Able to articulate well. Speech-Normal speech, normal rate, normal tone, normal use of language, volume and coherence. Thought content- normal with ability to perform basic computations and apply abstract thought/reason. Associations- intact, no SI/HI, no hallucinations, delusions, obsessions. Judgment/insight- Appropriate. Memory-Recall intact, remote and recent memory intact. Knowledge- Age appropriate fund of knowledge, concentration and attention span normal. Lymphatic: Head/Neck- normal size and non tender to palpation. Laboratory Results - last 24 hr 09/09/19 09/09/19 09/09/19 13:53 13:53 13:53 WBC 6.70 RBC 3.92 L Hgb 7.3 L Hct 26.2 L MCV 66.8 L MCH 18.6 L MCHC 27.9 L RDW Coeff of Lauren 29.0 H Plt Count 133 L Neutrophils % (Manual) 65.0 Band Neutrophils % 3.0 Lymphocytes % (Manual) 18.0 Monocytes % (Manual) 9.0 Eosinophils % (Manual) Basophils % (Manual) Metamyelocytes % 4.0 H Myelocytes % Nucleated RBCs 1.0 Reactive Lymphocytes Polychromasia Hypochromasia 2+ Poikilocytosis Anisocytosis 2+ Microcytosis 1+ Sickle Cells Tear Drop Cells Ovalocytes Acanthocytes (Spur) Schistocytes PT INR Sodium 138.4 Potassium 3.85 Chloride 105.6 Carbon Dioxide 25.3 Anion Gap 11.35 BUN 13.2 Creatinine 0.92 Estimated GFR (MDRD) 79.00 BUN/Creatinine Ratio 14.34 Glucose 95.2 Calcium 8.53 Total Bilirubin 2.09 H Direct Bilirubin AST 77.5 H ALT 12.5 Alkaline Phosphatase 60.7 Troponin I 0.017 Total Protein 7.85 Albumin 4.20 Globulin 3.65 Albumin/Globulin Ratio 1.15 Lipase 62.3 Serum , Qual Negative Miscellaneous Test 09/09/19 09/09/19 09/10/19 13:53 20:57 05:02 WBC 7.33 RBC 3.72 L Hgb 6.7 L Hct 24.5 L MCV 65.9 L MCH 18.0 L MCHC 27.3 L RDW Coeff of Lauren 28.3 H Plt Count 119 L Neutrophils % (Manual) 52.0 Band Neutrophils % 5.0 Lymphocytes % (Manual) 23.0 Monocytes % (Manual) 9.0 Eosinophils % (Manual) 0.0 Basophils % (Manual) 0.0 Metamyelocytes % 5.0 H Myelocytes % 1.0 Nucleated RBCs 2.0 Reactive Lymphocytes 5.0 Polychromasia 2+ Hypochromasia 4+ Poikilocytosis 4+ Anisocytosis 4+ Microcytosis Sickle Cells Tear Drop Cells 1+ Ovalocytes 1+ Acanthocytes (Spur) 1+ Schistocytes 1+ PT 10.0 INR 1.02 Sodium Potassium Chloride Carbon Dioxide Anion Gap BUN Creatinine Estimated GFR (MDRD) BUN/Creatinine Ratio Glucose Calcium Total Bilirubin Direct Bilirubin AST ALT Alkaline Phosphatase Troponin I 0.019 Total Protein Albumin Globulin Albumin/Globulin Ratio Lipase Serum , Qual Miscellaneous Test 09/10/19 09/10/19 09/10/19 05:02 05:02 05:02 WBC RBC Hgb Hct MCV MCH MCHC RDW Coeff of Lauren Plt Count Neutrophils % (Manual) Band Neutrophils % Lymphocytes % (Manual) Monocytes % (Manual) Eosinophils % (Manual) Basophils % (Manual) Metamyelocytes % Myelocytes % Nucleated RBCs Reactive Lymphocytes Polychromasia Hypochromasia Poikilocytosis Anisocytosis Microcytosis Sickle Cells Tear Drop Cells Ovalocytes Acanthocytes (Spur) Schistocytes PT INR Sodium 138.8 Potassium 3.87 Chloride 109.1 H Carbon Dioxide 24.8 Anion Gap 8.77 BUN 11.0 Creatinine 0.92 Estimated GFR (MDRD) 79.00 BUN/Creatinine Ratio 11.95 Glucose 95.3 Calcium 8.14 L Total Bilirubin 2.25 H Direct Bilirubin 0.00 AST 69.7 H ALT 12.3 Alkaline Phosphatase 49.1 Troponin I 0.024 Total Protein 7.11 Albumin 3.66 Globulin 3.45 Albumin/Globulin Ratio 1.06 Lipase Serum , Qual Miscellaneous Test Sent to [facility] (1) Chest pain: Status: Acute Code(s): R07.9 - Chest pain, unspecified SNOMED Code(s): 23787851 (2) Anemia: Status: Acute Code(s): D64.9 - Anemia, unspecified SNOMED Code(s): 420443642 (3) Vitamin B12 deficiency: Status: Acute Code(s): E53.8 - Deficiency of other specified B group vitamins SNOMED Code(s): 433079918 (4) Iron (Fe) deficiency anemia: Status: Acute Code(s): D50.9 - Iron deficiency anemia, unspecified SNOMED Code(s): 15722995 (5) Excessive cerumen in left ear canal: Status: Acute Code(s): H61.22 - Impacted cerumen, left ear SNOMED Code(s): 885850087 (6) Menorrhagia: Status: None SNOMED Code(s): 459482360 Plan: Chest pain: Resolved/asymptomatic now. Stress negative. Non cardiac chest pain. - Admit Obs - Tele - Fluids maintenance: NS 115ml/hr - Am cbc/cmp - D/C NSAIDS. - Hemoccult ordered. Anemia: Type/screen/transfuse recommended ordered by me and issues were discovered in this process. I was contacted at 1300 by pathology reran samples and abx are negative, no schistocytes, no bite cells but tear drops, target cells, stomacytes, ovalocytes, schistocytes, eliptocyctes, and a left shift. Questioned about hepatitis as possibility. I have ordered acute hepatitis panel in addition to LDH and haptoglobin. She had prominent unconjugated hyperbili. overproduction of bili and impaired uptake both considered:dyserthropoeis, hemolysis, medication effect, gilbert syndrome, hyperthyroid state, hepatitis cirrhosis considered. Per pathology blood looks bad. Chem analyzer struggling to determine the cause. Minimal traces of hemolysis. K+ is staBLE. Per pathology she recommends to get to academic center with hematology to assist. She has had the 2 units, non [place], concerned regarding possible undiagnosed coagulopathy. She needs coag w/u it is beyond the scope of local facility/lab. I will contact [facility] to see if they can see patient. I have ordered hgb electrophoresis already. Awaiting further labs. I will contact labs. Repeat CBC/CMP 1500. I have re-evaluated the patient at 14:30. Pathology Dr. Ramirez noted that this does have some evidence of hemolysis. Bandemia with normal white cell count can suggest infection. Hepatitis panel ordered. She has no other ysmptoms at this time. RUQ US ordered. - RUQ US ordered. - CBC/CMP in am. Sinusitis: Stable/asymptomatic. No known allergy to pCN. Do not suspect above is related to med effect. Continue home dose of augmentin. - Augmentin 875 PO BID x 7 days. Cerumen impaction left: Monitor. Hold debrox while in hospital. DVT Prophy: With history of ?dark stools, no blood thinners for now. Up ad jyoti. If a BM is present please check for hemoccult. - GRISELDA/SCD overnight recommended. - Up ad jyoti, full activity. Fluids: Maintenance fluids to be set at 115ml/hour overnight (increase from 75). Diet: Regular. Disposition: Concerning lab findings, chronic anemia, worsening anemia, blood dyscrasia concerning for reaction to transfusion, hepatitis, etc. Repeat labs to be completed. Send out labs will be evaluated. >75 minutes spent with patient today, rounded x 3. She is clinically stable. HR is low. No cough, no SOA, no chest pain, no urinary symptoms. Current plan is to monitor overnight, if worsening, consider transfer to academic center in the am. Several discussions with pathology today regarding atypical blood samples. Addendum: RUQ US returned negative. Hgb returned as only mildly decreased. Decision in the am to transfer to academic center as inpatient vs outpatient. - Pending formal read Manual diff CBC - Pending Haptoglobin - Pending LDH - Pending hgb electrophoresis.
[2019-09-10 15:09] LABS: HEMATOCRIT 23.7 % (37.0-47.0)
--- NOTE | 2019-09-10 16:57 | US ---
EXAM: Right upper quadrant abdominal ultrasound History: Elevated bilirubin Comparison: Abdominal ultrasound 01/25/2016, CT of the abdomen pelvis 08/09/2015 Technique: Multiple sonographic images through the abdomen were obtained. Color duplex Doppler was used to interrogate vascular flow. Findings: No abdominal ascites. The liver is not enlarged. No focal liver lesions identified sonog raphically. There is antegrade flow within the main portal vein. No shadowing gallstones. Gallblad sonja wall is not thickened. Common bile duct measures 0.6 cm in caliber. Limited visualization of th e right kidney demonstrates no evidence for hydronephrosis. Impression: No acute sonographic findings. No gallstones
[2019-09-11] MEDS: PRILOSEC PO SCH (06:08)
--- NOTE | 2019-09-11 07:51 | PCM.DC ---
Final Diagnosis: 1. Hemolytic anemia, 2. Recent transfusion (09/03 2 units) w/ concern for transfusion reaction, 3. hyperbilirubinemia indirect, 4. bradycardia w/o heartblock. 5. Atypical chest pain resolved: negative stress 6. BMI 27 7. Heavy menstrual cycles LMP 2-14 through 09-04. (1) Anemia: Status: Acute Code(s): D64.9 - Anemia, unspecified SNOMED Code(s): 018260606 Qualifiers: Anemia type: unspecified type Qualified Code(s): D64.9 - Anemia, unspecified (2) Chest pain: Status: Acute Code(s): R07.9 - Chest pain, unspecified SNOMED Code(s): 24515293 Qualifiers: Chest pain type: precordial pain Qualified Code(s): R07.2 - Precordial pain (3) Vitamin B12 deficiency: Status: Acute Code(s): E53.8 - Deficiency of other specified B group vitamins SNOMED Code(s): 042070239 (4) Iron (Fe) deficiency anemia: Status: Acute Code(s): D50.9 - Iron deficiency anemia, unspecified SNOMED Code(s): 16948491 (5) Excessive cerumen in left ear canal: Status: Acute Code(s): H61.22 - Impacted cerumen, left ear SNOMED Code(s): 126557845 (6) Menorrhagia: Status: None SNOMED Code(s): 944214732 (7) Hyperbilirubinemia: Status: Acute Code(s): E80.6 - Other disorders of bilirubin metabolism SNOMED Code(s): 78358363 (8) Hemolysis: Status: Acute SNOMED Code(s): 99670234 Reason for Hospitalization: Atypical chest pain Chronic anemia Recent transfusion Prognosis at Discharge: Clinically Stable, unknown etiology for worsening anemia. Condition at Discharge: Worsening anemia. Medications at Discharge: Ambulatory Orders Medication Instructions Recorded naproxen sodium [Aleve] 220 mg PO DAILY PRN #30 tab-cap 08/02/17 fluticasone propionate 50 1 spray LEVON QDAY #18.2 ml 09/03/19 mcg/actuation nasal spray,suspension omeprazole 40 mg capsule,delayed 40 mg PO QDAY #30 cap 09/03/19 release amoxicillin 875 mg-potassium 1 tab PO BID 10 Days #20 tab 09/07/19 clavulanate 125 mg tablet carbamide peroxide 6.5 % ear drops 5 drop LEFT EAR Q12H 4 Days #1 unit 09/07/19 mecobalamin (vitamin B12) 1,000 1,000 mcg SL QDAY #90 tab 09/07/19 mcg disintegrating tablet,sublingual Lab/Diagnostics: Laboratory Results - last 24 hr 09/10/19 09/10/19 09/10/19 05:02 05:02 05:02 WBC RBC Hgb Hct MCV MCH MCHC RDW Coeff of Lauren Plt Count Neutrophils % (Manual) Band Neutrophils % Lymphocytes % (Manual) Monocytes % (Manual) Eosinophils % (Manual) Basophils % (Manual) Metamyelocytes % Myelocytes % Polychromasia Hypochromasia Poikilocytosis Anisocytosis Microcytosis Macrocytosis Target Cells Tear Drop Cells Ovalocytes Stomatocytes Acanthocytes (Spur) Schistocytes Haptoglobin < 10 L Sodium Potassium Chloride Carbon Dioxide Anion Gap BUN Creatinine Estimated GFR (MDRD) BUN/Creatinine Ratio Glucose Calcium Total Bilirubin AST ALT Alkaline Phosphatase Total Protein Albumin Globulin Albumin/Globulin Ratio Hepatitis A IgM Ab Negative Hep Bs Antigen Negative Hep B Core IgM Ab Negative Hep C Ab Signal/Cutoff < 0.1 Miscellaneous Test Sent to [facility] 09/10/19 09/10/19 09/11/19 15:01 15:01 04:56 WBC 7.59 7.40 RBC 3.63 L 3.39 L Hgb 6.5 L 5.9 L* Hct 23.7 L 22.0 L MCV 65.3 L 64.9 L MCH 17.9 L 17.4 L MCHC 27.4 L 26.8 L RDW Coeff of Lauren 27.9 H 27.0 H Plt Count 111 L 132 L Neutrophils % (Manual) 78.0 H 47.0 Band Neutrophils % 12.0 H Lymphocytes % (Manual) 12.0 21.0 Monocytes % (Manual) 6.0 12.0 H Eosinophils % (Manual) 1.0 3.0 Basophils % (Manual) 0.0 Metamyelocytes % 3.0 H 2.0 Myelocytes % 3.0 H Polychromasia 2+ Hypochromasia 3+ 4+ Poikilocytosis 4+ Anisocytosis 2+ 4+ Microcytosis 3+ Macrocytosis 1+ Target Cells 1+ Tear Drop Cells 1+ Ovalocytes 3+ 1+ Stomatocytes 1+ Acanthocytes (Spur) 1+ 1+ Schistocytes 2+ Haptoglobin Sodium 138.8 Potassium 3.88 Chloride 106.7 Carbon Dioxide 26.0 Anion Gap 9.98 BUN 10.4 Creatinine 0.93 Estimated GFR (MDRD) 78.00 BUN/Creatinine Ratio 11.18 Glucose 101.6 Calcium 8.79 Total Bilirubin 2.56 H AST 96.7 H D ALT 12.7 Alkaline Phosphatase 40.4 Total Protein 7.42 Albumin 3.88 Globulin 3.54 Albumin/Globulin Ratio 1.09 Hepatitis A IgM Ab Hep Bs Antigen Hep B Core IgM Ab Hep C Ab Signal/Cutoff Miscellaneous Test 09/11/19 04:56 WBC RBC Hgb Hct MCV MCH MCHC RDW Coeff of Lauren Plt Count Neutrophils % (Manual) Band Neutrophils % Lymphocytes % (Manual) Monocytes % (Manual) Eosinophils % (Manual) Basophils % (Manual) Metamyelocytes % Myelocytes % Polychromasia Hypochromasia Poikilocytosis Anisocytosis Microcytosis Macrocytosis Target Cells Tear Drop Cells Ovalocytes Stomatocytes Acanthocytes (Spur) Schistocytes Haptoglobin Sodium 138.7 Potassium 3.92 Chloride 108.6 H Carbon Dioxide 24.8 Anion Gap 9.22 BUN 9.0 Creatinine 0.93 Estimated GFR (MDRD) 78.00 BUN/Creatinine Ratio 9.67 Glucose 94.5 Calcium 8.49 Total Bilirubin 2.44 H AST 93.7 H ALT 15.7 Alkaline Phosphatase 42.4 Total Protein 6.93 Albumin 3.58 Globulin 3.35 Albumin/Globulin Ratio 1.06 Hepatitis A IgM Ab Hep Bs Antigen Hep B Core IgM Ab Hep C Ab Signal/Cutoff Miscellaneous Test CXR: clear 09/09/19 Stress Test: 09/10/19 Stress Echo INTERPRETATION: 1. NO EVIDENCE OF ISCHEMIA BY ST-T WAVE 2. EXERCISE TOLERANCE : LOW 3. NO CHEST PAIN OR DISCOMFORT 4. NO ARRHYTHMIA 5. BLOOD PRESSURE RESPONSE: NORMAL NORMAL LEFT VENTRICULAR CONTRACTILITY--RESTING AND POST EXERCISE RUQ US negative 09/10/19. Pending: LDH Blood cultures ordered 09/11/19 CT Chest without pending Hgb electrophoresis pending Acute hepatitis panel pending. Education Provided to Patient and Family: Anemia/Fibroids. 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 NO w/u for coagulopathy. Chronic anemia. Discussed with patient need for specialist care. Follow-ups: Transfer to [facility]. Discussed with DR. Peoples and with Heme/Onc this am. Discharge Disposition: Transfer (SLU) Hospital Course: 49 yo AAF HD #3 admitted on 09/09/19 with acute atypical chest pain with known history of chronic anemia, iron def anemia, suspected b12 def anemia, fibroids, stroke 1986 post OCP, uterine fibroids on US 01/25/16. Non smoking female, LMP 08/21-09/04 prolonged cycles, heavy bleeding. She presented to outpatient clinic on 09/03/19 and worked up by TOÑITO Jean Baptiste. Labs were ordered and hgb was noted to be 4.9. She was set up for a blood transfusion, type/screen 2 units ordered and given 1 unit. I was contacted with improvement up to 5.7. I requested second unit to be given. She improved to hgb of 7.3. She was discharged from the hospital and met with TOÑITO Padgett on 09/06. Patient felt markedly better, 2 week menstrual cycle had stopped. She was referred to [facility] for eval for fibroid/bleeding and to hematology. Historically poor response to iron. Historically numerous blood transfusions. No history of sickle that is known. Last known transfusion locally was 06/2018. There was question regarding sinus infection, she was started on augmentin at that visit. She presented to ED at [facility] on 09/09/19 with 2-3 bouts of substernal/mid chest pain that was squeezing and pressure like in nature. No injury, no trauma, no falls. Vitals were stable. ED provided completed 1 view CXR, negative. He called me with HARRISON of 1, anemia with hgb of 7.3 and to admit to obs for am stress test. She was started on maintenance fluids based on 165lb weight (BMI 27), GRISELDA reardoning, made NPO and re-eval in the am. On admit hgb was stable/better, CMP showed bili 2.09 and AST of 77.5 HD 09/10/19: Stress test returned negative, low risk ischemia, low exercise tolerance, normal BP response. Vitals remained stable, maintenance fluids 115ml/hr while NPO. Tolerating PO during the day. Bradycardic but asymptomatic 45-70S ON TELE. am labs showed WBc stable 7.33, hgb down to 6.7, hct 24.5 and plt 119. CMP showed normal sodium 138.8, mildly low K+ 3.87 and normal BUN 11, Cr 0.92, glucose 95.3. Calcium appeared low at 8.14 but corrected to 8.4 when albumin of 3.66 was considered. mild elevation of AST, which was not specific. She has supposed to meet with [facility] today but this needed to be rescheduled. I felt another 1 unit of PRBC would help until she could meet with local heme/onc and [facility]. Type and screen ordered. Lab called and noted numerous dyscrasias within the blood. Haptoglobin ordered, LDH ordered, hgb electrophoresis ordered, hepatitis panel ordered. Pathologist concerned due to left shift, tear drop, schistocytes, eliptocytes, ovalocytes, anisocytes. Direct bili returned negative. Discussed case with lab/path several times, concern for worsening anemia. No source/known cause of infection, on abx for sinus symptoms that are improving. Repeated labs 3pm: CBC returned with hgb 6.5, cmp showed bili elevated 2.56, AST elevated at 96.7. She rested the night on tele. HR down to upper 40's. stable. HD #3 09/11/19. This am labs CBC wbc 7.4, hgb 5.9, hct 22, plt 132. 12% bands, 12% monocytes, 3% myelocytes. 1+ target, 1+ tear drop, 1+ ovalocytes, 1+ eliptocytes, 2+ schistocytes. Telemetry remains unchanged. GRISELDA/SCD for DVT prophy. She still has no symptoms, chest pain free since 09/09/19, stress negative yesterday. Worsening labs. Haptoglobin returned as <10. Unconjugated bilirubin is elevated. Pathology/red cross have discussed case with me 09/10/19 and they do not feel additional blood would be good for now. I was contacted this am 5:30 to discuss case. I contacted [facility] and talked with DR. Singh heme/onc fellow: Hospitalist has recommended talking to Heme/onc first. Reviewed available information. Recommended direct ruth, med team eval with consult heme onc. Suspect autoimmune hemolytic anemia with ?infection. Recommended I get CT chest now. LDH is pending, haptoglobin <10. Anemia worsening. He suspected hemolysis. Call #2 7:34 am: Medicine provide Dr. Peoples. Discussed the H+P, progress from 09/10/19 and labs from this am. Dr. Singh recommended direct ruth, ct, concern for infection. I have contacted team and discussed with patient plans to transfer to [facility] for hemolytic anemia, left shift, concern for infection. Labs still pending: LDH Hgb electrophoresis, Acute hepatitis panel CT chest ordered Blood cultures ordered Day of d/c physical exam: Constitutional: Appearance-No acute distress, Consistent with stated age. Orientation- Oriented x 3, alert Gait-Normal pace, normal arm movement. Build and Nutrition-[overweight] General- Patient is pleasant and cooperative with the interview and exam. Integumentary: General-No rashes, ulcers or lesions. Head/Neck: Head- normocephalic and atraumatic. Neck- without visible/palpable lumps or pulsations. Palpation- No bony tenderness about head/neck along frontal, occipital, temporal, parietal, mastoid, jawline, zygoma, orbit or any other location. NO temporal artery tenderness. No TMJ tenderness. Neck Supple. Thyroid-No thyromegaly, no nodules Eye: Bilaterally PERRLA, EOMI. No discharge. Non jaundice on exam. no conjunctival injection. ENMT: Nasal mucosa- No bleeding noted and no ulcerations observed. [place], moist. Turbinates Boggy boggy. Lips- normal color, moist without cracks/lesions Oral Cavity/Palate- hard/soft palate intact without lesions, oral mucosa pink and moist. CHEST/LUNG: Inspection- symmetric chest wall no pectus deformity. Normal effort, no distress, no use of accessory muscles. Palpation- nontender sternum, ribline. No abnormal pulsations. Auscultation- Breath sounds normal throughout all lung rivero. Normal tracheal sounds, Normal bronchial sounds overlying sternum, Bronchovessicular sounds normal between scapulae posteriorly, Normal vessicular breath sounds heard throughout periphery. Lungs are clear today. Adventitious sounds- No wheezes, rales, rhonchi. CARDIOVASCULAR: Carotid artery- normal, no bruits or abnormal pulsations. Jugular vein- no pulsations. Palpation/Percussion- Normal PMI, no palpable thrill Auscultation- Regular rate and rhythm. No murmur noted in sitting, supine positions. Extremities- no digital clubbing, cyanosis, edema, increased warmth. ABDOMEN: Inspection- normal and no visible pulsations. Normal contour. Auscultation- Bowel sounds normal, no abdominal bruits. Palpation/Percussion- soft, non-tender, no rebound tenderness, no rigidity (guarding), no jar tenderness, no masses. Liver-no hepatomegaly, Spleen no splenomegaly, Hernias- none. Rectal not examined. Peripheral Vascular: Upper extremity Left- Normal temperature with pink nailbeds and no ulcerations. Upper extremity Right- Normal temperature with pink nailbeds and no ulcerations. Lower extremity- Normal temperature with pink nailbeds and no ulcerations. DP pulses 2+ bilaterally. Pedal hair intact. Normal capillary refill. Edema- No edema. Musculoskeletal: Generalized-No generalized swelling or edema of extremities, no digital clubbing or cyanosis, neurovascularly intact all four extremities. Neurological: General- Moves all 4 extremities symmetrically. Symmetrical face and body posture except mild chronic lower lip weakness. Cranial nerves- individually evaluated II-XII and intact. PERRLA, Normal EOMI, visual/special senses appear intact, normal sensation/movement, normal tongue, normal strength/posture of neck musculature. Neuropsych: Oriented- Person, place, time. (AAOx3), Mood/affect- normal and congruent. Able to articulate well. Speech-Normal speech, normal rate, normal tone, normal use of language, volume and coherence. Thought content- normal with ability to perform basic computations and apply abstract thought/reason. Associations- intact, no SI/HI, no hallucinations, delusions, obsessions. Judgment/insight- Appropriate. Memory-Recall intact, remote and recent memory intact. Knowledge- Age appropriate fund of knowledge, concentration and attention span normal. Lymphatic: Head/Neck- normal size and non tender to palpation.
[2019-09-11] MEDS: AUGMENTIN 875-125 MG TAB PO SCH (09:04)
[2019-09-11] MEDS: FLONASE NAS SCH (09:05)
--- NOTE | 2019-09-11 09:55 | CT ---
EXAM: CT of the chest without contrast History: Anemia. Comparison: Chest radiograph 09/09/2019, chest CT 07/04/2016 Technique: Multiplanar CT images through the thorax were obtained without the administration of IV c ontrast Findings: Heart is enlarged. No pericardial effusion. The interventricular septum of the heart is v isible suggesting anemia. No axillary lymphadenopathy. No thoracic aortic aneurysm. No mediastinal lymphadenopathy. Evaluation for hilar lymph nodes is limited due to lack of contrast administration . There is mild interstitial edema and trace bilateral pleural effusions. No pneumothorax. No cons olidated pneumonia. No suspicious lung masses or lung nodules. Small to moderate hiatal hernia is again seen. No acute osseous abnormalities. Impression: 1. Cardiomegaly with mild interstitial edema and trace bilateral pleural effusions. 2. No evidence for pneumonia. 3. The interventricular septum of the heart is visible suggesting anemia. 4. Hiatal hernia
[2019-09-11] MEDS: SODIUM CHLORIDE 1,000 ML IV SCH (10:00)
--- NOTE | 2019-09-11 13:09 | ECHOSTRESS ---
Date of Exam: 09/10/2019 Ordering Physician: DR. LISSETH LICEA Reason for Echo: CHEST PAIN, STRESS TEST--NO ISCHEMIA M-Mode Normal Adult Results LV Dimensions Normal Adult Results AoV Opening excursions >1.6 LVEDD-base- 3.5-5.8 Ao root dimensions 2.0-3.7 LVESD-base- 3.1-4.6 L. Atrium dimensions 1.9-3.8 Post. Wall thickness 0.8-1.1 IV septum (thickness) 0.7-1.2 Post. Wall excursion 0.72-1.3 Septal motion Systolic motion R. Ventricular cavity 1.5-2.0 LVEF 60% Paradoxical septal wall motion 2-D: NORMAL LEFT VENTRICULAR CONTRACTILITY--RESTING AND POST EXERCISE M-MODE: MV: AV: TV: PV: CHAMBER SIZE: WALL MOTION: NORMAL LEFT VENTRICULAR CONTRACTILITY--RESTING AND POST EXERCISE PERICARDIUM: INTERPRETATION: 1. NORMAL LEFT VENTRICULAR CONTRACTILITY--RESTING AND POST EXERCISE MTDD
--- NOTE | 2019-09-11 13:16 | ECHO2D ---
Date of Exam: 09/10/2019 Ordering Physician: DR. LISSETH LICEA Room #: 122 Reason for Echo: CHEST PAIN M-Mode Normal Adult Results LV Dimensions Normal Adult Results AoV Opening excursions >1.6 >1.6 LVEDD-base- 3.5-5.8 4.2 Ao root dimensions 2.0-3.7 3.2 LVESD-base- 3.1-4.6 L. Atrium dimensions 1.9-3.8 4.1 Post. Wall thickness 0.8-1.1 1.2 IV septum (thickness) 0.7-1.2 1.2 Post. Wall excursion 0.72-1.3 NORMAL Septal motion NORMAL Systolic motion R. Ventricular cavity 1.5-2.0 NORMAL LVEF 60% 71% Paradoxical septal wall motion NORMAL 2-D : 2-D M Mode Echocardiogram was performed using apical four chamber and left parasternal long and short axis views. Mitral, tricuspid and aortic valves appear to be normal. Contractility of the left ventricle seems to be normal, so is the cavity size. BORDERLINE ENLARGED LEFT ATRIAL CAVITY. Aortic root appears to be normal. There is no pericardial effusion. There is no thrombus noted in the left ventricle or left atrial cavity. No mitral valve prolapse noted. M-MODE: MV: NORMAL AV: NORMAL TV: NORMAL PV: CHAMBER SIZE: BORDERLINE ENLARGED LEFT ATRIAL CAVITY WALL MOTION: NORMAL PERICARDIUM: NORMAL INTERPRETATION: 1. LEFT VENTRICULAR HYPERTROPHY WITH BORDERLINE ENLARGED LEFT ATRIAL CAVITY 2. NORMAL LEFT VENTRICULAR CONTRACTILITY 3. NORMAL VALVES MTDD
[2019-09-11 13:53] VITALS: BP 134/77; TEMP 99.2
== END 2019-09-11 16:05 | disposition short-term general hospital (02) ==
LOC: ED 13:24 → MEDSURG B 13:24
PROVIDERS: ADMIT Family Medicine; ATTEND Family Medicine
DX: Z79.899 Other long term (current) drug therapy; H61.22 Impacted cerumen, left ear; R19.7 Diarrhea, unspecified; R11.0 Nausea; E80.6 Other disorders of bilirubin metabolism; D50.9 Iron deficiency anemia, unspecified; Z68.27 Body mass index [BMI] 27.0-27.9, adult; N92.0 Excessive and frequent menstruation with regular cycle; E53.8 Deficiency of other specified B group vitamins; D25.9 Leiomyoma of uterus, unspecified; R00.1 Bradycardia, unspecified; Z86.73 Personal history of transient ischemic attack (TIA), and cerebral infarction without residual deficits; R10.9 Unspecified abdominal pain; D59.9 Acquired hemolytic anemia, unspecified; R07.2 Precordial pain